=== PATIENT | female | born 1945 | race Caucasian/White ===

== ENCOUNTER 2019-07-19 07:45 | Day surgery (SDC) | payer MEDICARE, MEDICAID, SELFPAY ==
[2019-07-18 13:53] VITALS: BMI 43.3
--- NOTE | 2019-07-19 08:16 | ANES.PREANE2 ---
Pre-Anesthetic Assessment Pre-Anesthetic Assessment: Height/Weight: Height 1.78 m Weight 136.985 kg Preop Diagnosis: hematochezia Proposed Procedure: Operation Date: 07/19/19 09:00 Proposed Procedures p EGD/COLON(Not Applicable) - Kyle Chen MD s Colonoscopy(Not Applicable) - Kyle Chen MD Was Beta Romelia taken within 24 hours: Yes Last Intake: 05:00 Exam: Pre-Anes Outpt Exam: alert, oriented x 3, clear to auscultation bilaterally and regular rate & rhythm Airway: Submandibular: WNL Cervical ROM: WNL MP: 2 Dentition: False Pulmonary: Comments: pneumonia 30y without sequale CV/HEM: CV/HEM: HTN and MN Comments: rx'd x 12 MN cath no blockages : : Chronic renal Insufficiency GI: GI: GERD Comments: Ramires's esophagus Metabolic: Metabolic: DM, Morbid obesity and Thyroid Comments: rx'd x 12y, normally 200-260 thyroid x 30y without recent changes Musc/skel: Musc/skel: Lower Back Pain Neuropsych: Neuropsych: MACKEY Comments: last weeks ago Anesthetic Plan: ASA status: 3 Anesthesia: MAC PFSH Anesthesia PFSH: Medical History (Updated 07/11/19 @ 11:03 by Kyle Chen MD) 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
[2019-07-19 08:50] VITALS: BP 109/74; PULSE 85; RESP 18; TEMP 36.2; O2SAT 99
[2019-07-19 08:59] LABS: Glucose Point of Care 297 mg/dL (70-110)
[2019-07-19] MEDS: sodium chloride 0.9% 1,000 ML 30 ML (08:59)
--- NOTE | 2019-07-19 10:06 | PM.HPUD ---
H&P update H&P Update: DATE OF SURGERY/PROCEDURE: 07/19/19 DATE H&P PERFORMED: 07/11/19 H&P UPDATE INFORMATION: H&P completed within last 30 days, No changes to prior documentation and H&P is in 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
[2019-07-19 10:33] VITALS: BP 116/75; PULSE 77; RESP 18; TEMP 36.1; O2SAT 96
[2019-07-19 10:48] VITALS: BP 115/65; PULSE 72; RESP 18; O2SAT 98
== END 2019-07-19 11:35 | disposition home or self-care (01) ==
PROVIDERS: Family Provider Family Medicine; PCP Family Medicine; Visit Provider Internal Medicine
PROC: 0DJ08ZZ Inspection of Upper Intestinal Tract, Via Natural or Artificial Opening Endoscopic (ICD-10-PCS; CPT 43235; principal; 2019-07-19 09:00)
PROC: 0DJD8ZZ Inspection of Lower Intestinal Tract, Via Natural or Artificial Opening Endoscopic (ICD-10-PCS; CPT 45378; 2019-07-19 09:00)
DX: K92.1 Melena (principal); K57.30 Diverticulosis of large intestine without perforation or abscess without bleeding; E13.9 Other specified diabetes mellitus without complications; I10 Essential (primary) hypertension; E03.9 Hypothyroidism, unspecified; E78.2 Mixed hyperlipidemia; E66.01 Morbid (severe) obesity due to excess calories; Z68.41 Body mass index [BMI] 40.0-44.9, adult; Z87.891 Personal history of nicotine dependence; I25.2 Old myocardial infarction
CPT/HCPCS: 12345; 36416; 43235; 45378; 82962; J2001; J2704; J7030

== ENCOUNTER → 2019-07-31 10:57 | Outpatient (BNVA) | payer MEDICARE, MEDICAID, SELFPAY | PROVIDERS: Family Provider Family Medicine; PCP Family Medicine; Visit Provider Family Medicine | DX: L60.0 Ingrowing nail (principal); F41.9 Anxiety disorder, unspecified | CPT/HCPCS: 85025 ==

== ENCOUNTER → 2019-08-28 14:00 | Outpatient (BNVA) | payer MEDICARE, MEDICAID, SELFPAY | PROVIDERS: Family Provider Family Medicine; PCP Family Medicine; Visit Provider Family Medicine | DX: I10 Essential (primary) hypertension (principal); K92.1 Melena; F41.9 Anxiety disorder, unspecified; R32 Unspecified urinary incontinence; N81.9 Female genital prolapse, unspecified | CPT/HCPCS: 80053; 85025 ==

== ENCOUNTER → 2019-09-16 14:16 | Outpatient (BNVA) | payer MEDICARE, MEDICAID, SELFPAY | PROVIDERS: Family Provider Family Medicine; PCP Family Medicine; Visit Provider Family Medicine | DX: I10 Essential (primary) hypertension (principal); K92.1 Melena; F41.9 Anxiety disorder, unspecified; R32 Unspecified urinary incontinence; N81.9 Female genital prolapse, unspecified | CPT/HCPCS: 82607; 82746 ==

== ENCOUNTER → 2019-09-25 14:00 | Outpatient (BNVA) | payer MEDICARE, MEDICAID, SELFPAY | PROVIDERS: Family Provider Family Medicine; PCP Family Medicine; Visit Provider Nurse Practitioner Family | DX: E03.9 Hypothyroidism, unspecified (principal); R53.82 Chronic fatigue, unspecified | CPT/HCPCS: 84439; 84443 ==

== ENCOUNTER → 2019-12-09 11:41 | Outpatient (BNVA) | payer MEDICARE, MEDICAID, SELFPAY | PROVIDERS: Family Provider Family Medicine; PCP Family Medicine; Visit Provider Family Medicine | DX: E11.9 Type 2 diabetes mellitus without complications (principal); K22.70 Barrett's esophagus without dysplasia; F41.9 Anxiety disorder, unspecified; R53.82 Chronic fatigue, unspecified | CPT/HCPCS: 36415; 83036; 85025 ==

== ENCOUNTER → 2020-02-28 14:34 | Outpatient (BNVA) | payer MEDICARE, MEDICAID, SELFPAY | PROVIDERS: Family Provider Family Medicine; PCP Family Medicine; Visit Provider Nurse Practitioner Family | DX: Z20.828 Contact with and (suspected) exposure to other viral communicable diseases (principal) | CPT/HCPCS: 87635 ==

== ENCOUNTER → 2020-03-18 10:50 | Outpatient (BNVA) | payer MEDICARE, MEDICAID, SELFPAY | PROVIDERS: Family Provider Family Medicine; PCP Family Medicine; Visit Provider Family Medicine | DX: R10.9 Unspecified abdominal pain (principal); R32 Unspecified urinary incontinence | CPT/HCPCS: 81000 ==

== ENCOUNTER 2020-03-24 14:34 | Emergency (ER) | payer MEDICARE, MEDICAID, SELFPAY ==
[2020-03-24 14:41] VITALS: BP 167/121; PULSE 66; RESP 18; TEMP 36.1; O2SAT 95; BMI 43.2
--- NOTE | 2020-03-24 15:10 | PC.NURSE ---
PATIENT ASSISTED TO BATHROOM VIA WHEELCHAIR; URINE OBTAINED.
--- NOTE | 2020-03-24 15:17 | CTR_ITS ---
PROCEDURE INFORMATION: Exam: CT Abdomen And Pelvis Without Contrast Exam date and time: 03/24/2020 4:03 PM Age: 74 years old Clinical indication: Abdominal pain; Flank; Other: Bilat; Prior surgery; Surgery type: Hyst; Patient HX: Recent UTI; Additional info: Kidney pain - h/o renal abscess TECHNIQUE: Imaging protocol: Computed tomography of the abdomen and pelvis without contrast. Radiation optimization: All CT scans at this facility use at least one of these dose optimization techniques: automated exposure control; mA and/or kV adjustment per patient size (includes targeted exams where dose is matched to clinical indication); or iterative reconstruction. COMPARISON: CT abdomen pelvis w con* 36000 03/14/2019 3:30 PM RADIATION DOSE METRICS: Total DLP (mGy-cm): 2305.43 FINDINGS: Lungs: Limited assessment of the lung bases fails to reveal evidence for active cardiopulmonary process. Tiny calcified granuloma posterior basal segment left lower lobe stable. Cardiomegaly. Calcified mitral annulus. Liver: Few hepatic calcified granulomas of antecedent disease. No visible hepatic mass or cystic structure. Hepatomegaly. Gallbladder and bile ducts: Unremarkable. No calcified stones. No ductal dilation. Pancreas: Normal. No ductal dilation. Spleen: Calcified splenic granulomas of antecedent disease. Tiny splenule. Spleen otherwise unremarkable. Adrenals: Normal. No mass. Kidneys and ureters: No visible hydronephrosis, hydroureter, ureterolithiasis, or nephrolithiasis. Bilateral simple renal cortical cysts to include hemorrhagic cyst stable since 03/14/2019. Largest superior pole right kidney measuring 68 mm in maximum diameter. No follow-up recommended. Stomach and bowel: Diverticulosis coli, predominantly of the sigmoid colon, without visible evidence of for acute diverticulitis. Assessment of the hollow viscus fails to reveal evidence of active or acute pathology. Nonobstructed bowel pattern. No visible acute diverticulitis. No visible adynamic or reactive ileus. Heavy fecal residue consistent with constipation. Appendix: The appendix is visualized and appears noninflamed. Intraperitoneal space: No visible evidence of mesenteric lymphadenitis or active mesenteritis/panniculitis. Vasculature: The abdominal aorta is nonaneurysmal. Mild arterial sclerotic disease. Lymph nodes: No current visible evidence of active mesenteric or retroperitoneal lymphadenopathy. Urinary bladder: Unremarkable as visualized. Reproductive: Status post hysterectomy. Bones/joints: Degenerative disease and degenerative disc disease of the spine most advanced L3 through S1 with vacuum disc phenomenon and disc space height loss. Facet arthrosis. Osteopenia. Soft tissues: Small periumbilical hernia containing fat only. Other findings: Marked obesity. Increased quantum mottle artifact which degrades image quality in detail. CT/CT kidney stone [id number] IMPRESSION: 1. No visible evidence of active or acute abdominal or pelvic pathologic process. 2. Diverticulosis coli without evidence for acute diverticulitis. 3. Constipation. 4. No visible hydronephrosis, hydroureter, ureterolithiasis, or nephrolithiasis. 5. Bilateral simple renal cortical cysts to include a dominant superior pole right renal cyst measuring 68 mm in maximum diameter. No follow-up recommended. 6. Antecedent granulomatous disease. COMMENTS: Consistent with the [employer]'s Incidental Findings Committee white paper (J Am Morena Radiol 2018): Any incidental renal lesion less than 1 cm or classified as too small to characterize, or any incidental cystic renal lesion characterized as simple-appearing, is likely benign. No follow-up imaging is recommended for these lesions per consensus recommendations based on imaging criteria. Radiation Dose CTDIVOL = (mGy): DLP = 2305.43 (mGy-cm)
[2020-03-24 15:20] LABS: Add Urine Microscopic? NO; Bilirubin Urine Neg (Negative); Blood Urine Neg (Negative); Glucose Urine UA Norm (Normal); Ketones Urine Negative (Negative); Leukocyte Esterase Urine Negative (Negative); Nitrate Urine Negative (Negative); Protein Urine Neg (Negative); Urine Appearance Clear (CLEAR); Urine Color Yellow (Yellow); Urobilinogen Urine Norm (Negative); pH Urine 5 (5-7)
--- NOTE | 2020-03-24 16:02 | W.ED.FEMALGU ---
Documented by User: Vicki Mayelin KAY Alba 03/25/20 07:53 HPI - Female Genitourinary General: Chief complaint: Urogenital-Female Stated complaint: BILAT FLANK PAIN Time Seen by Provider: 03/24/20 14:48 History of Present Illness: HPI Narrative: 74-year-old female patient planing of lower back pain, she is reporting kidney pain . She was sent by EMS to the emergency department from her primary care provider who reports her back pain was out of proportion. She reports she is experiencing kidney pain. Onset of back pain started 10 days ago, placed on Levaquin for urinary tract infection. She states last dose of Levaquin today and pain is not improved. She reports the last time she experienced similar symptoms was with E. coli positive blood cultures and abscess in her kidney. She reports purulent exudate in her urine today. She denies fever, reports chills, denies nausea vomiting. She denies urinary symptoms yet reports stage IV kidney disease. She reports Dr. Valentine, her primary care physician is concerned she may have a kidney stone or another renal abscess. He has sent her here for a CT scan. MD elicited complaint: other (Bilateral flank pain and back pain) Pertinent past history: pyelonephritis, diabetes and other (Renal abscess) Onset (ago): day(s) (10) Location of symptoms: low back Severity: moderate Female Urogenital Radiation: L Flank and R Flank Severity scale (1-10): 5 Quality of pain: cramping, dull and aching Consistency: constant Vaginal discharge: none Vaginal bleeding: none Associated symptoms: Reports abdominal pain and fevers/chills; Deny headache(s) or nausea Review of Systems General: Reports: 10 or more systems reviewed and unremarkable except in HPI and below Const: Denies: fever(s), chills or diaphoresis Eyes: Denies: blurry vision or eye redness ENMT: Denies: throat pain, dental pain or disequilibrium Card: Denies: chest pain, palpitations or irregular heart rhythm Resp: Denies: dyspnea, productive cough, non-productive cough or wheezing GI: Reports: abdominal pain and other (Bilateral flank pain); Denies: nausea or vomiting : Denies: difficulty voiding or dysuria Musc: Reports: back pain; Denies: neck pain, extremity pain, extremity swelling, muscle cramps or muscle weakness Skin/Breast: Denies: rash or pruritus Neuro: Denies: headache(s), weakness in extremities or behavioral changes Psych: Denies: anxiety or depression Willie/Lymph: Denies: easy bruising PFSH ED PFSH: Medical History 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 Chronic pain Diabetes 1.5, 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 Hypertension Hypothyroidism (acquired) Mixed hyperlipidemia Obesity (BMI 35.0-39.9 without comorbidity) Social History Smoking and tobacco status: never smoked Alcohol intake: former Household members: none Marital status: Number of children: 3 Number of grandchildren: 3 History of recent travel: No Physical Exam Const: COMMON NORMALS: no acute distress, patient oriented x3, healthy appearing and alert GENERAL APPEARANCE: cooperative, comfortable and well hydrated HENMT: COMMON NORMALS: normocephalic, Normal external nose present and moist oral mucous membranes HEAD & SCALP: normocephalic NOSE: Normal external nose present Eye: COMMON NORMALS: Equal, round and reactive pupils present and EOMs intact bilaterally GENERAL EYE: appearance normal, both eyes and all related structures PUPIL: Yes Equal, round and reactive pupils present Neck/C-Spine: COMMON NORMALS: full ROM and no lymphadenopathy GENERAL: Yes normal visual inspection and Yes trachea midline CERVICAL SPINE: Yes cervical ROM normal Lymph: LYMPHATIC: no lymphadenopathy noted Chest: COMMONS NORMALS: normal inspection of the chest and normal palpation of entire chest wall Resp: COMMON NORMALS: normal respiratory effort and clear to auscultation bilaterally EFFORT & INSPECTION: Yes able to speak in complete sentences AUSCULTATION: clear to auscultation bilaterally Cardio: COMMON NORMALS: regular rhythm, S1 normal heart sound present, S2 normal heart sound present and Peripheral pulses 2+ throughout RHYTHM: regular rhythm HEART SOUNDS: S1 normal heart sound present and S2 normal heart sound present PERIPHERAL PULSES: Peripheral pulses 2+ throughout GI: COMMON NORMALS: Normal to inspection, nondistended, normoactive bowel sounds present, Soft to palpation and non-tender INSPECTION: Yes normal to inspection PALPATION: Yes Soft to palpation : BLADDER/KIDNEY EXAM: No CVA tenderness Back/Pelvis: COMMON NORMALS: thoracic and lumbar spine normal to inspection GENERAL BACK: No CVA tenderness THORACIC SPINE/UPPER BACK: Yes thoracic ROM normal LUMBAR SPINE/LOWER BACK: Yes normal to inspection, Yes pain with ROM, No lumbar spinal tenderness, Yes paraspinal muscle tenderness, No paraspinal muscle spasm, No Lumbar scoliosis, Yes straight leg raise negative bilaterally and Yes other soft tissue findings (Bilateral lower extremity strength 5/5) Extremity: COMMON NORMALS: normal to inspection and capillary refill normal Neuro: COMMON NORMALS: patient oriented x3 and no focal motor deficits SENSORIUM/ORIENTATION: Yes alert Psych: COMMON NORMALS: mental status grossly normal, Normal thought process present and cooperative ACTIVITY/MOTOR BEHAVIOR: Yes appropriate eye contact THOUGHT PROCESS: Normal thought process present Skin: COMMON NORMALS: no rashes or lesions noted and turgor normal GENERAL SKIN EXAM: no rashes or lesions noted and turgor normal Course ED course: 74-year-old female patient presents to the emergency department with back pain and flank pain. She was sent from her primary care physician's office for evaluation, CT scan of the abdomen and pelvis, CT kidney stone protocol currently pending. Urinalysis normal, completed Levaquin today. White blood count normal. Transfer of care to [facility] Vital Signs: Vital signs: Vital Signs Temperature 97.0 F L 03/24/20 14:41 Pulse Rate 75 03/24/20 18:33 Respiratory Rate 17 03/24/20 18:33 Blood Pressure 155/85 03/24/20 18:33 Pulse Oximetry 98 03/24/20 18:33 MDM - Female Lab Data: Labs: Lab Results 03/24/20 03/24/20 03/24/20 Range/Units 14:55 16:00 16:00 WBC 6.7 (4.0-10.0) 10^3/ uL RBC 3.57 L (4.1-5.3) 10^6/u L Hgb 11.6 (11.5-15.3) g/dL Hct 36.3 L (37.0-47.0) % MCV 101.7 H (81-99) fL MCH 32.5 (28.0-34.0) pg MCHC 32.0 (30.0-36.0) g/dL RDW 14.9 (12.1-15.1) % Plt Count 145 (130-400) 10^3/c mm MPV 12.0 H (7.4-10.4) fL Neut % (Auto) 52.6 % Lymph % (Auto) 36.1 % Bent % (Auto) 6.7 % Eos % (Auto) 2.2 % Baso % (Auto) 2.1 % Neut # (Auto) 3.55 (1.8-7.7) 10^3/u L Lymph # (Auto) 2.4 (0.8-4.8) 10^3/u L Bent # (Auto) 0.5 (0.2-0.9) 10^3/u L Eos # (Auto) 0.2 (0.0-0.8) 10^3/u L Baso # (Auto) 0.1 (0.0-0.1) 10^3/u L Nucleated RBC % (a uto) 0 % Nucleated RBCs # 0.0 /100WBC Sodium 144 (136-145) mmol/L Potassium 4.1 (3.5-5.1) mmol/L Chloride 109 H (98-107) mmol/L Carbon Dioxide 23 (22-29) mmol/L Anion Gap 16.1 (5-19) BUN 22 (8-23) mg/dL Creatinine 1.1 H (0.5-0.9) mg/dL GFR Calculation Not Reportable Glucose 68 (65-115) mg/dL Calculated Osmolal ity 300 H (285-295) mOsm/k g Calcium 10.1 (8.5-10.5) mg/dL Total Bilirubin 0.4 (0.15-1.2) mg/dL AST 24 (0-32) U/L ALT 17 (0-33) U/L Alkaline Phosphata se 70 (35-105) IU/L Total Protein 7.5 (6.6-8.7) g/dL Albumin 4.3 (3.5-5.2) g/dL Globulin 3.2 (1.3-4.6) g/dL Urine Color Yellow (Yellow) Urine Appearance Clear (CLEAR) Urine pH 5 (5-7) Ur Specific Gravit y 1.020 (1.005-1.030) Urine Protein Neg (Negative) Urine Glucose (UA) Norm (Normal) Urine Ketones Negative (Negative) Urine Blood Neg (Negative) Urine Nitrate Negative (Negative) Urine Bilirubin Neg (Negative) Urine Urobilinogen Norm (Negative) mg/dL Ur Leukocyte Latonia ase Negative (Negative) Discharge Plan Discharge Patient Disposition: Home Clinical Impression: Low back pain Qualifiers: Chronicity: acute Back pain laterality: bilateral Sciatica presence: without sciatica Qualified Code(s): M54.5 - Low back pain Condition: Stable Prescriptions: No Action diclofenac sodium [Voltaren] 1 % gel 4 gm TOPICAL QID RF: 0 ascorbate calcium (vitamin C) 500 mg tablet 500 mg PO DAILY RF: 0 omega-3 fatty acids [Fish Oil Concentrate] 1,000 mg capsule 1,000 mg PO DAILY RF: 0 glucosamine-chondroitin 167-133 mg capsule 1 cap PO DAILY RF: 0 carvedilol 25 mg tablet 25 mg PO BID RF: 0 simvastatin 10 mg tablet 10 mg PO DAILY RF: 0 levothyroxine [Synthroid] 150 mcg tablet 150 mcg PO DAILY RF: 0 sumatriptan succinate [Imitrex] 100 mg tablet See Rx Instructions PO .COMPLEX RF: 0 (DME) insulin needles (disposable) 30 X 3/4 needle See Rx Instructions .ROUTE .MEDSUPPLY Qty: 1 RF: 0 nitroglycerin 0.4 mg tablet, sublingual 0.4 mg SUBLINGUAL Q5M PRN (Reason: Chest Pain) RF: 0 PNV,[id number] 27-1-50-500 mg capsule 1 cap PO DAILY RF: 0 fluticasone propionate 50 mcg/actuation spray,suspension 1 spray INTRANASAL BID RF: 0 aspirin [Adult Aspirin Regimen] 81 mg tablet,delayed release (DR/EC) 81 mg PO DAILY RF: 0 vitamin B complex PO RF: 0 acyclovir 5 % ointment 1 applic TOPICAL TID PRN (Reason: Cold Sores) Qty: 30 RF: 5 ergocalciferol (vitamin D2) 1,250 mcg (50,000 unit) capsule 1,250 mcg PO .COMPLEX Qty: 14 RF: 3 prednisone 5 mg tablets,dose pack See Rx Instructions PO PER PKG DIR Qty: 21 RF: 0 levofloxacin 500 mg tablet 500 mg PO Q24H 10 Days Qty: 7 RF: 0 spironolactone 25 mg tablet 25 mg PO DAILY RF: 0 cannabidiol 100 mg/mL solution PO DAILY RF: 0 olopatadine [Pataday] 0.2 % drops 1 drop ophthalmic (eye) DAILY PRN (Reason: itching) Qty: 2.5 RF: 11 doxycycline monohydrate 50 mg tablet 50 mg PO DAILY Qty: 30 RF: 5 Victoza 2-Thee 0.6 mg/0.1 mL (18 mg/3 mL) pen injector 1.8 mg SUBCUT QDAY Qty: 6 RF: 5 glipizide 10 mg tablet 20 mg PO BID Qty: 60 RF: 11 lisinopril 40 mg tablet 40 mg PO BEDTIME Qty: 30 RF: 11 ibuprofen 800 mg tablet 800 mg PO TID PRN (Reason: Pain) Qty: 90 RF: 11 metronidazole 0.75 % cream 1 applic TOPICAL BID Qty: 135 RF: 11 amlodipine 5 mg tablet 5 mg PO DAILY Qty: 30 RF: 11 lidocaine HCl 2 % jelly 1 applic TOPICAL QID PRN (Reason: Pain) Qty: 30 RF: 5 potassium chloride 15 mEq tablet,ER particles/crystals 15 meq PO DAILY PRN (Reason: TAKE WITH LASIX) Qty: 30 RF: 11 pioglitazone [Actos] 30 mg tablet 30 mg PO DAILY Qty: 30 RF: 11 furosemide [Lasix] 40 mg tablet 40 mg PO DAILY Qty: 30 RF: 11 lidocaine [Lidoderm] 5 % adhesive patch,medicated 3 patch TOPICAL .q12 hours Qty: 30 RF: 11 clonazepam 0.5 mg tablet 0.5 mg PO .COMPLEX PRN (Reason: anxiety) Qty: 60 RF: 0 polyethylene glycol 3350 [Miralax] 17 gram/dose powder 17 gm PO DAILY Qty: 119 RF: 1 benzonatate 200 mg capsule 200 mg PO TID PRN (Reason: cough) Qty: 14 RF: 0 Dexilant 60 mg capsule,biphase delayed releas 60 mg PO DAILY Qty: 30 RF: 5 Discharge Orders: Discharge Order (Routine); Ordered 03/24/20 Ordered By: Vincent Jesus Referrals: Tenzin Valentine DO [Primary Care Provider] - Discharge Diet: Regular Discharge Activity: Increase activity as tolerated Patient Instructions: Low Back Strain (ED), Acute Low Back Pain (ED), Back Pain (ED) Activity Restrictions/Additional Instructions: Follow-up with medical provider as directed in 7-10 days. Continue taking all home medications as prescribed. Apply heat or cold pack on sore back to help with symptoms. Take Tylenol or ibuprofen for pain. Stretch lower back daily. Return to the ER or your medical provider if condition worsens. Please read and understand discharge instructions. If any questions, please ask. Discharge Date/Time: 03/24/20 18:36 Sign Out Sign Out Data: Patient Sign Out occurred on 03/24/20 at 17:19. Patient's care was discussed, and care was transferred from to [facility]. 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 Chronic pain Diabetes 1.5, 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 Hypertension Hypothyroidism (acquired) Mixed hyperlipidemia Obesity (BMI 35.0-39.9 without comorbidity) Social History Smoking and tobacco status: never smoked Alcohol intake: former Household members: none Marital status: Number of children: 3 Number of grandchildren: 3 History of recent travel: No Course Vital Signs: Vital signs: Vital Signs Temperature 97.0 F L 03/24/20 14:41 Pulse Rate 75 03/24/20 18:33 Respiratory Rate 17 03/24/20 18:33 Blood Pressure 155/85 03/24/20 18:33 Pulse Oximetry 98 03/24/20 18:33 MDM - Female MDM Narrative: Medical decision making narrative: 74-year-old female patient presents to the emergency department with back pain and flank pain. She was sent from her primary care physician's office for evaluation, CT scan of the abdomen and pelvis, CT kidney stone protocol currently pending. Urinalysis normal, completed Levaquin today. White blood count normal. Transfer of care to [facility] She has a past medical history of chronic kidney disease stage IV. Patient had creatinine of 1.1, which she said is the lowest level she has had in a long time. Rest of CBC and CMP was unremarkable. UA was unremarkable as well with no evidence of UTI. CT the abdomen showed no acute abdominal findings. Patient was diagnosed with lower back pain discharged. She was told to stretch lower back daily, apply heat to help with symptoms. Take Tylenol or ibuprofen for pain. Follow-up with PCP in 7 to 10 days. Return to ED precautions given. Patient understood and agreed with plan. Lab Data: Labs: Lab Results 03/24/20 03/24/20 03/24/20 Range/Units 14:55 16:00 16:00 WBC 6.7 (4.0-10.0) 10^3/ uL RBC 3.57 L (4.1-5.3) 10^6/u L Hgb 11.6 (11.5-15.3) g/dL Hct 36.3 L (37.0-47.0) % MCV 101.7 H (81-99) fL MCH 32.5 (28.0-34.0) pg MCHC 32.0 (30.0-36.0) g/dL RDW 14.9 (12.1-15.1) % Plt Count 145 (130-400) 10^3/c mm MPV 12.0 H (7.4-10.4) fL Neut % (Auto) 52.6 % Lymph % (Auto) 36.1 % Bent % (Auto) 6.7 % Eos % (Auto) 2.2 % Baso % (Auto) 2.1 % Neut # (Auto) 3.55 (1.8-7.7) 10^3/u L Lymph # (Auto) 2.4 (0.8-4.8) 10^3/u L Bent # (Auto) 0.5 (0.2-0.9) 10^3/u L Eos # (Auto) 0.2 (0.0-0.8) 10^3/u L Baso # (Auto) 0.1 (0.0-0.1) 10^3/u L Nucleated RBC % (a uto) 0 % Nucleated RBCs # 0.0 /100WBC Sodium 144 (136-145) mmol/L Potassium 4.1 (3.5-5.1) mmol/L Chloride 109 H (98-107) mmol/L Carbon Dioxide 23 (22-29) mmol/L Anion Gap 16.1 (5-19) BUN 22 (8-23) mg/dL Creatinine 1.1 H (0.5-0.9) mg/dL GFR Calculation Not Reportable Glucose 68 (65-115) mg/dL Calculated Osmolal ity 300 H (285-295) mOsm/k g Calcium 10.1 (8.5-10.5) mg/dL Total Bilirubin 0.4 (0.15-1.2) mg/dL AST 24 (0-32) U/L ALT 17 (0-33) U/L Alkaline Phosphata se 70 (35-105) IU/L Total Protein 7.5 (6.6-8.7) g/dL Albumin 4.3 (3.5-5.2) g/dL Globulin 3.2 (1.3-4.6) g/dL Urine Color Yellow (Yellow) Urine Appearance Clear (CLEAR) Urine pH 5 (5-7) Ur Specific Gravit y 1.020 (1.005-1.030) Urine Protein Neg (Negative) Urine Glucose (UA) Norm (Normal) Urine Ketones Negative (Negative) Urine Blood Neg (Negative) Urine Nitrate Negative (Negative) Urine Bilirubin Neg (Negative) Urine Urobilinogen Norm (Negative) mg/dL Ur Leukocyte Latonia ase Negative (Negative) Imaging Data: CT Abd/Pel: Attestation: I personally reviewed and interpreted this imaging study as follows: Radiologist's impression: [address] [address] [address] Scan Report Signed Patient: Sara Beck Unit #: [id number] : 1945 Age/Sex: 74 / F ADM Date: 03/24/20 Loc: ER Room/Bed: Attending Dr: Ordering Provider/Ordering MD: Vicki Alba Date of Service: 03/24/20 Procedure(s): CT kidney stone 9[address]14 Accession Number(s): [id number] Report Number: [id number] PROCEDURE INFORMATION: Exam: CT Abdomen And Pelvis Without Contrast Exam date and time: 03/24/2020 4:03 PM Age: 74 years old Clinical indication: Abdominal pain; Flank; Other: Bilat; Prior surgery; Surgery type: Hyst; Patient HX: Recent UTI; Additional info: Kidney pain - h/o renal abscess TECHNIQUE: Imaging protocol: Computed tomography of the abdomen and pelvis without contrast. Radiation optimization: All CT scans at this facility use at least one of these dose optimization techniques: automated exposure control; mA and/or kV adjustment per patient size (includes targeted exams where dose is matched to clinical indication); or iterative reconstruction. COMPARISON: CT abdomen pelvis w con* [id number] 03/14/2019 3:30 PM RADIATION DOSE METRICS: Total DLP (mGy-cm): 2305.43 FINDINGS: Lungs: Limited assessment of the lung bases fails to reveal evidence for active cardiopulmonary process. Tiny calcified granuloma posterior basal segment left lower lobe stable. Cardiomegaly. Calcified mitral annulus. Liver: Few hepatic calcified granulomas of antecedent disease. No visible hepatic mass or cystic structure. Hepatomegaly. Gallbladder and bile ducts: Unremarkable. No calcified stones. No ductal dilation. Pancreas: Normal. No ductal dilation. Spleen: Calcified splenic granulomas of antecedent disease. Tiny splenule. Spleen otherwise unremarkable. Adrenals: Normal. No mass. Kidneys and ureters: No visible hydronephrosis, hydroureter, ureterolithiasis, or nephrolithiasis. Bilateral simple renal cortical cysts to include hemorrhagic cyst stable since 03/14/2019. Largest superior pole right kidney measuring 68 mm in maximum diameter. No follow-up recommended. Stomach and bowel: Diverticulosis coli, predominantly of the sigmoid colon, without visible evidence of for acute diverticulitis. Assessment of the hollow viscus fails to reveal evidence of active or acute pathology. Nonobstructed bowel pattern. No visible acute diverticulitis. No visible adynamic or reactive ileus. Heavy fecal residue consistent with constipation. Appendix: The appendix is visualized and appears noninflamed. Intraperitoneal space: No visible evidence of mesenteric lymphadenitis or active mesenteritis/panniculitis. Vasculature: The abdominal aorta is nonaneurysmal. Mild arterial sclerotic disease. Lymph nodes: No current visible evidence of active mesenteric or retroperitoneal lymphadenopathy. Urinary bladder: Unremarkable as visualized. Reproductive: Status post hysterectomy. Bones/joints: Degenerative disease and degenerative disc disease of the spine most advanced L3 through S1 with vacuum disc phenomenon and disc space height loss. Facet arthrosis. Osteopenia. Soft tissues: Small periumbilical hernia containing fat only. Other findings: Marked obesity. Increased quantum mottle artifact which degrades image quality in detail. CT/CT kidney stone 20256 IMPRESSION: 1. No visible evidence of active or acute abdominal or pelvic pathologic process. 2. Diverticulosis coli without evidence for acute diverticulitis. 3. Constipation. 4. No visible hydronephrosis, hydroureter, ureterolithiasis, or nephrolithiasis. 5. Bilateral simple renal cortical cysts to include a dominant superior pole right renal cyst measuring 68 mm in maximum diameter. No follow-up recommended. 6. Antecedent granulomatous disease. COMMENTS: Consistent with the [employer]'s Incidental Findings Committee white paper (J Am Morena Radiol 2018): Any incidental renal lesion less than 1 cm or classified as too small to characterize, or any incidental cystic renal lesion characterized as simple-appearing, is likely benign. No follow-up imaging is recommended for these lesions per consensus recommendations based on imaging criteria. Radiation Dose CTDIVOL = (mGy): DLP = 2305.43 (mGy-cm) Dictated By: Christiano Alcala Signed By: Christiano Alcala Signed Date/Time: 03/24/201734 DD/ 32 Discharge Plan Discharge Patient Disposition: Home Clinical Impression: Low back pain Qualifiers: Chronicity: acute Back pain laterality: bilateral Sciatica presence: without sciatica Qualified Code(s): M54.5 - Low back pain Condition: Stable Prescriptions: No Action diclofenac sodium [Voltaren] 1 % gel 4 gm TOPICAL QID RF: 0 ascorbate calcium (vitamin C) 500 mg tablet 500 mg PO DAILY RF: 0 omega-3 fatty acids [Fish Oil Concentrate] 1,000 mg capsule 1,000 mg PO DAILY RF: 0 glucosamine-chondroitin 167-133 mg capsule 1 cap PO DAILY RF: 0 carvedilol 25 mg tablet 25 mg PO BID RF: 0 simvastatin 10 mg tablet 10 mg PO DAILY RF: 0 levothyroxine [Synthroid] 150 mcg tablet 150 mcg PO DAILY RF: 0 sumatriptan succinate [Imitrex] 100 mg tablet See Rx Instructions PO .COMPLEX RF: 0 (DME) insulin needles (disposable) 30 X 3/4 needle See Rx Instructions .ROUTE .MEDSUPPLY Qty: 1 RF: 0 nitroglycerin 0.4 mg tablet, sublingual 0.4 mg SUBLINGUAL Q5M PRN (Reason: Chest Pain) RF: 0 PNV,[id number] 27-1-50-500 mg capsule 1 cap PO DAILY RF: 0 fluticasone propionate 50 mcg/actuation spray,suspension 1 spray INTRANASAL BID RF: 0 aspirin [Adult Aspirin Regimen] 81 mg tablet,delayed release (DR/EC) 81 mg PO DAILY RF: 0 vitamin B complex PO RF: 0 acyclovir 5 % ointment 1 applic TOPICAL TID PRN (Reason: Cold Sores) Qty: 30 RF: 5 ergocalciferol (vitamin D2) 1,250 mcg (50,000 unit) capsule 1,250 mcg PO .COMPLEX Qty: 14 RF: 3 prednisone 5 mg tablets,dose pack See Rx Instructions PO PER PKG DIR Qty: 21 RF: 0 levofloxacin 500 mg tablet 500 mg PO Q24H 10 Days Qty: 7 RF: 0 spironolactone 25 mg tablet 25 mg PO DAILY RF: 0 cannabidiol 100 mg/mL solution PO DAILY RF: 0 olopatadine [Pataday] 0.2 % drops 1 drop ophthalmic (eye) DAILY PRN (Reason: itching) Qty: 2.5 RF: 11 doxycycline monohydrate 50 mg tablet 50 mg PO DAILY Qty: 30 RF: 5 Victoza 2-Thee 0.6 mg/0.1 mL (18 mg/3 mL) pen injector 1.8 mg SUBCUT QDAY Qty: 6 RF: 5 glipizide 10 mg tablet 20 mg PO BID Qty: 60 RF: 11 lisinopril 40 mg tablet 40 mg PO BEDTIME Qty: 30 RF: 11 ibuprofen 800 mg tablet 800 mg PO TID PRN (Reason: Pain) Qty: 90 RF: 11 metronidazole 0.75 % cream 1 applic TOPICAL BID Qty: 135 RF: 11 amlodipine 5 mg tablet 5 mg PO DAILY Qty: 30 RF: 11 lidocaine HCl 2 % jelly 1 applic TOPICAL QID PRN (Reason: Pain) Qty: 30 RF: 5 potassium chloride 15 mEq tablet,ER particles/crystals 15 meq PO DAILY PRN (Reason: TAKE WITH LASIX) Qty: 30 RF: 11 pioglitazone [Actos] 30 mg tablet 30 mg PO DAILY Qty: 30 RF: 11 furosemide [Lasix] 40 mg tablet 40 mg PO DAILY Qty: 30 RF: 11 lidocaine [Lidoderm] 5 % adhesive patch,medicated 3 patch TOPICAL .q12 hours Qty: 30 RF: 11 clonazepam 0.5 mg tablet 0.5 mg PO .COMPLEX PRN (Reason: anxiety) Qty: 60 RF: 0 polyethylene glycol 3350 [Miralax] 17 gram/dose powder 17 gm PO DAILY Qty: 119 RF: 1 benzonatate 200 mg capsule 200 mg PO TID PRN (Reason: cough) Qty: 14 RF: 0 Dexilant 60 mg capsule,biphase delayed releas 60 mg PO DAILY Qty: 30 RF: 5 Discharge Orders: Discharge Order (Routine); Ordered 03/24/20 Ordered By: Vincent Jesus Referrals: Tenzin Valentine DO [Primary Care Provider] - Discharge Diet: Regular Discharge Activity: Increase activity as tolerated Patient Instructions: Low Back Strain (ED), Acute Low Back Pain (ED), Back Pain (ED) Activity Restrictions/Additional Instructions: Follow-up with medical provider as directed in 7-10 days. Continue taking all home medications as prescribed. Apply heat or cold pack on sore back to help with symptoms. Take Tylenol or ibuprofen for pain. Stretch lower back daily. Return to the ER or your medical provider if condition worsens. Please read and understand discharge instructions. If any questions, please ask. Discharge Date/Time: 03/24/20 18:36 Sign Out Sign Out Data: Patient Sign Out occurred on 03/24/20 at 17:19. Patient's care was discussed, and care was transferred from to [facility]. Coding Level of Care Code ED Apprentice Embalmer for Zuri Fwd Exam Comprehensive
--- NOTE | 2020-03-24 16:09 | PC.NURSE ---
PATIENT GIVEN PO FLUIDS PER PROVIDER OKAY. PATIENT ALSO GIVEN BLANKETS. SHE DENIES ANY OTHER NEEDS AT THIS TIME
[2020-03-24] MEDS: acetaminophen 500 mg Tablet 1000 MG PO (16:16)
[2020-03-24 16:23] LABS: Basophils # 0.1 10^3/uL (0.0-0.1); Basophils % 2.1 %; Eosinophils # 0.2 10^3/uL (0.0-0.8); Eosinophils % 2.2 %; Hematocrit 36.3 % (37.0-47.0); Hemoglobin 11.6 g/dL (11.5-15.3); Lymphocytes # 2.4 10^3/uL (0.8-4.8); Lymphocytes % 36.1 %; Mean Corpuscular Hemoglobin 32.5 pg (28.0-34.0); Mean Corpuscular Volume 101.7 fL (81-99); Monocytes # 0.5 10^3/uL (0.2-0.9); Monocytes % 6.7 %; Neutrophils # 3.55 10^3/uL (1.8-7.7); Neutrophils % 52.6 %; Nucleated Red Blood Cells % 0 %; Platelet Count 145 10^3/cmm (130-400); Red Blood Count 3.57 10^6/uL (4.1-5.3); Red Cell Distribution Width 14.9 % (12.1-15.1); White Blood Count 6.7 10^3/uL (4.0-10.0)
[2020-03-24 16:45] LABS: Alanine Aminotransferase 17 U/L (0-33); Albumin Level 4.3 g/dL (3.5-5.2); Alkaline Phosphatase 70 IU/L (35-105); Anion Gap 16.1 (5-19); Aspartate Amino Transferase 24 U/L (0-32); Blood Urea Nitrogen 22 mg/dL (8-23); Calcium 10.1 mg/dL (8.5-10.5); Carbon Dioxide 23 mmol/L (22-29); Chloride 109 mmol/L (98-107); Globulin 3.2 g/dL (1.3-4.6); Glucose 68 mg/dL (65-115); Osmolality Calculated 300 mOsm/kg (285-295); Potassium 4.1 mmol/L (3.5-5.1); Sodium 144 mmol/L (136-145); Total Bilirubin 0.4 mg/dL (0.15-1.2); Total Protein 7.5 g/dL (6.6-8.7)
[2020-03-24 18:16] VITALS: BP 155/85; PULSE 75; RESP 18
[2020-03-24 18:33] VITALS: BP 155/85; PULSE 75; RESP 17; O2SAT 98
== END 2020-03-24 18:36 | disposition home or self-care (01) ==
PROVIDERS: Nurse Practitioner Family; Emergency Provider Physician Assistant; Family Provider Family Medicine; PCP Family Medicine
DX: M54.5 Low back pain (principal); Z79.82 Long term (current) use of aspirin; Z79.84 Long term (current) use of oral hypoglycemic drugs; E13.9 Other specified diabetes mellitus without complications; I10 Essential (primary) hypertension; E78.2 Mixed hyperlipidemia
CPT/HCPCS: 12345; 74176; 80053; 81003; 85025; 99283

== ENCOUNTER → 2020-05-05 14:12 | Outpatient (BNVA) | payer MEDICARE, MEDICAID, SELFPAY | PROVIDERS: Family Provider Family Medicine; PCP Family Medicine; Visit Provider Family Medicine | DX: D64.9 Anemia, unspecified (principal); E13.9 Other specified diabetes mellitus without complications | CPT/HCPCS: 36415; 80053; 82306; 83036; 84439; 84443; 85025 ==

== ENCOUNTER 2020-05-25 22:36 | Emergency (ER) | payer MEDICARE, MEDICAID, SELFPAY ==
[2020-05-25 22:37] VITALS: BP 113/99; PULSE 88; RESP 20; TEMP 36.4; O2SAT 96; BMI 40.1
--- NOTE | 2020-05-25 22:56 | CTR_ITS ---
PROCEDURE INFORMATION: Exam: CT Head Without Contrast Exam date and time: 05/25/2020 10:59 PM Age: 74 years old Clinical indication: Other: Facial tingling; Additional info: Pain and tingling of the left face TECHNIQUE: Imaging protocol: Computed tomography of the head without contrast. Radiation optimization: All CT scans at this facility use at least one of these dose optimization techniques: automated exposure control; mA and/or kV adjustment per patient size (includes targeted exams where dose is matched to clinical indication); or iterative reconstruction. COMPARISON: No relevant prior studies available. RADIATION DOSE METRICS: Total DLP (mGy-cm): 783.79 FINDINGS: Brain: Normal. No hemorrhage. Unremarkable white matter. No mass effect. Cerebral ventricles: No ventriculomegaly. Bones/joints: Unremarkable. No acute fracture. Paranasal sinuses: Visualized sinuses are unremarkable. No fluid levels. Mastoid air cells: Visualized mastoid air cells are well aerated. Soft tissues: Unremarkable. CT/CT head wo con* [id number] IMPRESSION: Negative for intracranial hemorrhage or mass effect. Radiation Dose CTDIVOL = (mGy): DLP = 783.79 (mGy-cm)
--- NOTE | 2020-05-25 22:57 | XRR_ITS ---
PROCEDURE INFORMATION: Exam: XR Chest, 1 View Exam date and time: 05/25/2020 10:59 PM Age: 74 years old Clinical indication: Chest pain; Additional info: Cp TECHNIQUE: Imaging protocol: XR of the chest Views: 1 view. COMPARISON: CR Chest 1 [place] [id number] 03/14/2019 5:05 PM FINDINGS: Lungs: Right lower lobe atelectasis versus minimal infiltrate. Pleural space: Unremarkable. No pleural effusion. No pneumothorax. Heart/Mediastinum: Unremarkable. No cardiomegaly. Bones/joints: Unremarkable. XR/XR chest 1V portable [id number] IMPRESSION: Right lower lobe atelectasis versus minimal infiltrate.
--- NOTE | 2020-05-25 22:59 | ED_ITS ---
HPI - Neuro Symptoms/Deficit General: Chief Complaint: Neuro Symptoms/Deficit Stated Complaint: TINGLING LEFT SIDE OF FACE Time Seen by Provider: 05/25/20 22:56 Source: patient and EMS Mode of arrival: EMS Limitations: no limitations History of Present Illness: HPI Narrative: Pleasant 74-year-old female patient presents to the emergency department with several hour history of tingling and pain to the left side of the face. She reports sudden onset, woke from sleep, shingles vaccine 12 years ago. Denies weakness of the face, unilateral weakness of the body. She reports infectious diarrhea, treated by her primary care physician Dr. Chen with Rifaximin, states insurance will not pay for the medication she continues to experience 5-8 episodes of diarrhea daily. Reports 2 to 3-week history of infectious diarrhea. Diarrhea started after antibiotics for urinary tract infection. Reports taking quite a bit of Imodium. She reports onset of chest pain during EMS transport but quickly resolved. She reports only lasted seconds. Reports pain was localized to the center of her chest. Reports normal intake of meals. Denies fever or chills. Reports continued abdominal pain due to infectious diarrhea. Onset (ago): hour(s) (2-3) Location: left face History of same: No Severity: mild Quality: tingling and other (pain) Relieving factors: none Exacerbating factors: none Context: sudden onset Associated symptoms: Reports chest pain and other (diarrhea); Deny diaphoresis, headache(s), nausea or vomiting Treatments Prior to Arrival: none Review of Systems General: Reports: 10 or more systems reviewed and unremarkable except in HPI and below Const: Denies: fever(s), chills or diaphoresis Eyes: Denies: blurry vision or eye redness ENMT: Denies: throat pain, dental pain or disequilibrium Card: Reports: chest pain and dyspnea on exertion (chronic); Denies: palpitations, swelling of feet/ankles or orthopnea Resp: Denies: dyspnea, productive cough, non-productive cough, wheezing or chest congestion GI: Reports: abdominal pain, diarrhea and GI cramping (with diarrhea); Denies: nausea, vomiting or constipation : Denies: difficulty voiding or dysuria Musc: Reports: muscle cramps and muscle weakness; Denies: neck pain, back pain, joint pain, joint swelling or joint stiffness Skin/Breast: Denies: rash or pruritus Neuro: Denies: headache(s), weakness in extremities or behavioral changes Psych: Reports: anxiety; Denies: depression, change in appetite or irritability Willie/Lymph: Denies: easy bruising PFS ED PFSH: Medical History (Updated 05/26/20 @ 01:01 by KAY Fierro) Atrial fibrillation 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 Chronic pain Diabetes 1.5, 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 Hypertension Hypothyroidism (acquired) Mixed hyperlipidemia Obesity (BMI 35.0-39.9 without comorbidity) Social History Smoking and tobacco status: never smoked Alcohol intake: former Household members: none Marital status: Number of children: 3 Number of grandchildren: 3 History of recent travel: No NIH stroke score NIHSS: Level Of Consciousness - 1a: 0 Level Of Consciousness Questions - 1b: Both Correct Level Of Consciousness Commands - 1c: Both Correct Best Gaze - 2: Normal Visual Ravi - 3: No Visual Loss Facial Palsy - 4: Normal Motor Arm Right - 5: No Drift Motor Arm Left - 5: No Drift Motor Leg Right - 6: No Drift Motor Leg Left - 6: No Drift Limb Ataxia - 7: Absent Sensory - 8: Normal Best Language - 9: No Aphasia Dysarthia - 10: Normal Extinction And Inattention - 11: 0 Score: Total Score: 0 Physical Exam Const: COMMON NORMALS: no acute distress, average body habitus, patient oriented x3, healthy appearing, alert and well nourished EXAM LIMITATIONS: no altered mental status and no physical limitations GENERAL APPEARANCE: aleksandra ative, comfortable, well kempt, well developed and well hydrated; not in distress, not anxious, not combative, not ill appearing and not frail appearing NUTRITIONAL APPEARANCE: obese ORIENTATION/CONSCIOUSNESS: Yes awake, Yes oriented to person, Yes oriented to place and Yes oriented to time; not confused HENMT: COMMON NORMALS: normocephalic, atraumatic, Normal external nose present, Normal nasal mucous membranes and turbinates present, moist oral mucous membranes and oropharynx normal HEAD & SCALP: normal to inspection, normocephalic and atraumatic; no abrasion, no contusion, no scalp lesion, no scalp tenderness and no Temporal artery tenderness present FACE & SINUS: normal facial exam and face symmetric; no Flattened naso-labial fold present NOSE: Normal external nose present, Normal nares present, Normal nasal mucous membranes and turbinates present and No nasal discharge present MOUTH: Normal oral and palatal mucosa present, lip normal and tongue normal THROAT: posterior oropharynx normal, tonsils normal and uvula midline Eye: COMMON NORMALS: Equal, round and reactive pupils present, EOMs intact bilaterally, conjunctivae normal and normal visual ravi by confrontation GENERAL EYE: appearance normal, both eyes and all related structures VISUAL RAVI: No peripheral vision loss ALIGNMENT: Yes alignment normal PERIORBITAL: periorbital findings normal EYELID: eyelids normal CONJUNCTIVA: Yes conjunctivae normal SCLERA: sclerae normal PUPIL: Yes Equal, round and reactive pupils present EOM: No EOM abnormal Neck/C-Spine: COMMON NORMALS: full ROM and no lymphadenopathy GENERAL: Yes normal visual inspection and Yes trachea midline CERVICAL SPINE: Yes cervical ROM normal Lymph: LYMPHATIC: no lymphadenopathy noted Chest: COMMONS NORMALS: normal inspection of the chest Resp: COMMON NORMALS: normal respiratory effort, No retractions, No use of accessory muscles and clear to auscultation bilaterally EFFORT & INSPECTION: Yes able to speak in complete sentences, Yes symmetric chest movement, No tachypneic, No respiratory distress, No decreased respiratory effort and No uses accessory muscles AUSCULTATION: clear to auscultation bilaterally and diminished lung sounds bilateral in the lower lung ravi Cardio: COMMON NORMALS: regular rate, regular rhythm, S1 normal heart sound present, S2 normal heart sound present and Peripheral pulses 2+ throughout PALPATION: normal PMI RATE: regular rate RHYTHM: regular rhythm HEART SOUNDS: S1 normal heart sound present and S2 normal heart sound present PERIPHERAL PULSES: Peripheral pulses 2+ throughout GI: COMMON NORMALS: Normal to inspection, nondistended, normoactive bowel sounds present, Soft to palpation and non-tender INSPECTION: Yes normal to inspection, No abdominal wall ecchymosis, No incision and No visible pulsation AUSCULTATION: Yes normoactive bowel sounds PALPATION: Yes Soft to palpation : COMMON NORMALS: Yes no CVA tenderness BLADDER/KIDNEY EXAM: Yes no CVA tenderness Back/Pelvis: COMMON NORMALS: no CVA tenderness and thoracic and lumbar spine normal to inspection Extremity: COMMON NORMALS: normal to inspection and capillary refill normal Neuro: COMMON NORMALS: patient oriented x3 and no focal motor deficits SENSORIUM/ORIENTATION: Yes alert, Yes oriented to person, Yes oriented to place and Yes oriented to time Psych: COMMON NORMALS: mental status grossly normal, Normal thought process present and cooperative APPEARANCE: Yes well kempt ACTIVITY/MOTOR BEHAVIOR: Yes appropriate eye contact THOUGHT PROCESS: Normal thought process present Skin: COMMON NORMALS: no rashes or lesions noted, no wounds, turgor normal and no petechiae GENERAL SKIN EXAM: no rashes or lesions noted, elasticity normal and turgor normal LESIONS: no lesions RASHES: no rashes TRAUMA: no lacerations or abrasions Course ED course: 74-year-old female patient presents to the emergency department with facial tingling and pain. She reports sudden onset, facial tingling and pain started in the frontal left scalp and radiated over the forehead left eye and left cheek and chin. During her stay in the ED, she began with facial itching with tingling and pain. Rash was not appreciated upon exam to the scalp or face. She did not experience neurological deficits. EKG did appreciate atrial fibrillation which she says is chronic, serology findings without leukocytosis, abnormal chemistry findings or elevated troponin. Highly suspicious for shingles outbreak, initiated on Valtrex. She was also provided Flagyl for infectious diarrhea she has experienced for 2 to 3 weeks. Insurance company denied prescription for Rifazimin. States has appointment with Dr. Valentine on Monday at 11:20 AM. Case discussed with Dr. Heck, no further orders provided. Benadryl did alleviate itching and improvement of pain with hydrocodone. Agrees to return to the emergency department if she develops unilateral weakness, facial weakness or other concerning symptoms. We will continue to monitor findings on chest x-ray as patient has infectious diarrhea due to antibiotic therapy for UTI, currently exhibiting no symptoms of pneumonia, fever and chills not appreciated. Advised to continue with follow-up with Dr. Valentine for reassessment. Verbalized understanding. Vital Signs: Vital signs: Vital Signs Temperature 97.5 F L 05/25/20 22:37 Pulse Rate 71 05/26/20 01:38 Respiratory Rate 18 05/26/20 01:38 Blood Pressure 163/78 05/26/20 01:38 Pulse Oximetry 94 05/26/20 01:38 MDM - Neuro Symptoms/Deficit Lab Data: Labs: Lab Results 1205/25/20 05/25/20 Range/Units 23:14 23:14 23:14 WBC 6.8 (4.0-10.0) 10^3/ uL RBC 3.30 L (4.1-5.3) 10^6/u L Hgb 10.6 L (11.5-15.3) g/dL Hct 33.0 L (37.0-47.0) % MCV 100.0 H (81-99) fL MCH 32.1 (28.0-34.0) pg MCHC 32.1 (30.0-36.0) g/dL RDW 15.0 (12.1-15.1) % Plt Count 149 (130-400) 10^3/c mm MPV 11.0 H (7.4-10.4) fL Neut % (Auto) 54.4 % Lymph % (Auto) 33.0 % [place] % (Auto) 9.1 % Eos % (Auto) 2.2 % Baso % (Auto) 1.0 % Neut # (Auto) 3.71 (1.8-7.7) 10^3/u L Lymph # (Auto) 2.3 (0.8-4.8) 10^3/u L [place] # (Auto) 0.6 (0.2-0.9) 10^3/u L Eos # (Auto) 0.2 (0.0-0.8) 10^3/u L Baso # (Auto) 0.1 (0.0-0.1) 10^3/u L Nucleated RBC % (a uto) 0 % Nucleated RBCs # 0.0 /100WBC Sodium 139 (136-145) mmol/L Potassium 3.7 (3.5-5.1) mmol/L Chloride 106 (98-107) mmol/L Carbon Dioxide 25 (22-29) mmol/L Anion Gap 11.7 (5-19) BUN 16 (8-23) mg/dL Creatinine 1.0 H (0.5-0.9) mg/dL GFR Calculation Not Reportable Glucose 99 (65-115) mg/dL Calculated Osmolal ity 289 (285-295) mOsm/k g Lactate (0.5-2.2) mmol/L Calcium 9.4 (8.5-10.5) mg/dL Total Bilirubin 0.5 (0.15-1.2) mg/dL AST 19 (0-32) U/L ALT 17 (0-33) U/L Alkaline Phosphata se 74 (35-105) IU/L Troponin T Baselin e 10 (0-10) ng/L Total Protein 7.2 (6.6-8.7) g/dL Albumin 3.9 (3.5-5.2) g/dL Globulin 3.3 (1.3-4.6) g/dL Lipase 23 (13-60) U/L // Range/Units 23:14 WBC (4.0-10.0) 10^3/ uL RBC (4.1-5.3) 10^6/u L Hgb (11.5-15.3) g/dL Hct (37.0-47.0) % MCV (81-99) fL MCH (28.0-34.0) pg MCHC (30.0-36.0) g/dL RDW (12.1-15.1) % Plt Count (130-400) 10^3/c mm MPV (7.4-10.4) fL Neut % (Auto) % Lymph % (Auto) % [place] % (Auto) % Eos % (Auto) % Baso % (Auto) % Neut # (Auto) (1.8-7.7) 10^3/u L Lymph # (Auto) (0.8-4.8) 10^3/u L [place] # (Auto) (0.2-0.9) 10^3/u L Eos # (Auto) (0.0-0.8) 10^3/u L Baso # (Auto) (0.0-0.1) 10^3/u L Nucleated RBC % (a uto) % Nucleated RBCs # /100WBC Sodium (136-145) mmol/L Potassium (3.5-5.1) mmol/L Chloride (98-107) mmol/L Carbon Dioxide (22-29) mmol/L Anion Gap (5-19) BUN (8-23) mg/dL Creatinine (0.5-0.9) mg/dL GFR Calculation Glucose (65-115) mg/dL Calculated Osmolal ity (285-295) mOsm/k g Lactate 0.6 (0.5-2.2) mmol/L Calcium (8.5-10.5) mg/dL Total Bilirubin (0.15-1.2) mg/dL AST (0-32) U/L ALT (0-33) U/L Alkaline Phosphata se (35-105) IU/L Troponin T Baselin e (0-10) ng/L Total Protein (6.6-8.7) g/dL Albumin (3.5-5.2) g/dL Globulin (1.3-4.6) g/dL Lipase (13-60) U/L Imaging Data^: CXR: Radiologist's impression: [facility] [address] [place], [place] [address] XRay Report Signed Patient: Sara Beck #: [id number] : 8Acct#:[id number] Age/Sex: 74 / FADM Date: 05/25/20 [facility] Attending Dr: Ordering Provider/Ordering MD: Vicki Alba Date of Service: 05/25/20 Procedure(s): XR chest 1V portable [id number] Accession Number(s): [id number] Report Number: [id number] PROCEDURE INFORMATION: Exam: XR Chest, 1 View Exam date and time: 05/25/2020 10:59 PM Age: 74 years old Clinical indication: Chest pain; Additional info: Cp TECHNIQUE: Imaging protocol: XR of the chest Views: 1 view. COMPARISON: CR Chest 1 [place] [id number] 03/14/2019 5:05 PM FINDINGS: Lungs: Right lower lobe atelectasis versus minimal infiltrate. Pleural space: Unremarkable. No pleural effusion. No pneumothorax. Heart/Mediastinum: Unremarkable. No cardiomegaly. Bones/joints: Unremarkable. XR/XR chest 1V portable [id number] IMPRESSION: Right lower lobe atelectasis versus minimal infiltrate. Dictated By:Suhail Phipps MD Signed By:Suhail Phipps MDSigned Date/Time:05/25/202343 DD/ 42 CT Head: Radiologist's impression: [facility] [address] [place], [place] [id number] CT Scan Report Signed Patient: Sara Beck #: [id number] : 8Acct#:[id number] Age/Sex: 74 / FADM Date: 05/25/20 Loc: ERRoom/Bed: Attending Dr: Ordering Provider/Ordering MD: Vicki Alba Date of Service: 05/25/20 Procedure(s): CT head wo con* [id number] Accession Number(s): [id number] Report Number: [id number] PROCEDURE INFORMATION: Exam: CT Head Without Contrast Exam date and time: 05/25/2020 10:59 PM Age: 74 years old Clinical indication: Other: Facial tingling; Additional info: Pain and tingling of the left face TECHNIQUE: Imaging protocol: Computed tomography of the head without contrast. Radiation optimization: All CT scans at this facility use at least one of these dose optimization techniques: automated exposure control; mA and/or kV adjustment per patient size (includes targeted exams where dose is matched to clinical indication); or iterative reconstruction. COMPARISON: No relevant prior studies available. RADIATION DOSE METRICS: Total DLP (mGy-cm): 783.79 FINDINGS: Brain: Normal. No hemorrhage. Unremarkable white matter. No mass effect. Cerebral ventricles: No ventriculomegaly. Bones/joints: Unremarkable. No acute fracture. Paranasal sinuses: Visualized sinuses are unremarkable. No fluid levels. Mastoid air cells: Visualized mastoid air cells are well aerated. Soft tissues: Unremarkable. CT/CT head wo con* [id number] IMPRESSION: Negative for intracranial hemorrhage or mass effect. Radiation Dose CTDIVOL = (mGy): DLP = 783.79 (mGy-cm) Dictated By:Suhail Phipps MD Signed By:Suhail Phipps MDSigned Date/Time:05/25/202327 DD/ 25 Discharge Plan Discharge Patient Disposition: Home Clinical Impression: Facial tingling, Infectious diarrhea Condition: Stable Prescriptions: New Flagyl 500 mg tablet 500 mg PO Q8H 7 Days Qty: 21 RF: 0 Valtrex 1 gram tablet 1,000 mg PO Q8H 7 Days Qty: 21 RF: 0 No Action diclofenac sodium [Voltaren] 1 % gel 4 gm TOPICAL QID RF: 0 ascorbate calcium (vitamin C) 500 mg tablet 500 mg PO DAILY RF: 0 omega-3 fatty acids [Fish Oil Concentrate] 1,000 mg capsule 1,000 mg PO DAILY RF: 0 glucosamine-chondroitin 167-133 mg capsule 1 cap PO DAILY RF: 0 sumatriptan succinate [Imitrex] 100 mg tablet See Rx Instructions PO .COMPLEX RF: 0 (DME) insulin needles (disposable) 30 X 3/4 needle See Rx Instructions .ROUTE .MEDSUPPLY Qty: 1 RF: 0 aspirin [Adult Aspirin Regimen] 81 mg tablet,delayed release (DR/EC) 81 mg PO DAILY RF: 0 vitamin B complex PO RF: 0 acyclovir 5 % ointment 1 applic TOPICAL TID PRN (Reason: Cold Sores) Qty: 30 RF: 5 prednisone 5 mg tablets,dose pack See Rx Instructions PO PER PKG DIR Qty: 21 RF: 0 furosemide [Lasix] 40 mg tablet 40 mg PO DAILY PRN (Reason: edema) RF: 0 thiamine HCl (vitamin B1) 50 mg tablet 25 mg PO DAILY RF: 0 ergocalciferol (vitamin D2) 1,250 mcg (50,000 unit) capsule 1,250 mcg PO .COMPLEX Qty: 14 RF: 3 spironolactone 25 mg tablet 25 mg PO DAILY RF: 0 cannabidiol 100 mg/mL solution PO DAILY RF: 0 olopatadine [Pataday] 0.2 % drops 1 drop ophthalmic (eye) DAILY PRN (Reason: itching) Qty: 2.5 RF: 11 Victoza 2-Thee 0.6 mg/0.1 mL (18 mg/3 mL) pen injector 1.8 mg SUBCUT QDAY Qty: 6 RF: 5 glipizide 10 mg tablet 20 mg PO BID Qty: 60 RF: 11 lisinopril 40 mg tablet 40 mg PO BEDTIME Qty: 30 RF: 11 ibuprofen 800 mg tablet 800 mg PO TID PRN (Reason: Pain) Qty: 90 RF: 11 Lidocaine Viscous 2 % solution 1 applic MUCOUS MEM Q8H PRN (Reason: pain) Qty: 100 RF: 0 metronidazole 0.75 % cream 1 applic TOPICAL BID Qty: 135 RF: 11 amlodipine 5 mg tablet 5 mg PO DAILY Qty: 30 RF: 11 lidocaine HCl 2 % jelly 1 applic TOPICAL QID PRN (Reason: Pain) Qty: 30 RF: 5 potassium chloride 15 mEq tablet,ER particles/crystals 15 meq PO DAILY PRN (Reason: TAKE WITH LASIX) Qty: 30 RF: 11 pioglitazone [Actos] 30 mg tablet 30 mg PO DAILY Qty: 30 RF: 11 lidocaine [Lidoderm] 5 % adhesive patch,medicated 3 patch TOPICAL .q12 hours Qty: 30 RF: 11 benzonatate 200 mg capsule 200 mg PO TID PRN (Reason: cough) Qty: 14 RF: 0 Dexilant 60 mg capsule,biphase delayed releas 60 mg PO DAILY Qty: 30 RF: 5 levothyroxine [Synthroid] 150 mcg tablet 150 mcg PO DAILY Qty: 30 RF: 11 carvedilol 25 mg tablet 25 mg PO BID Qty: 60 RF: 11 simvastatin 10 mg tablet 10 mg PO DAILY Qty: 30 RF: 11 Niva-Plus 27 mg iron- 1 mg tablet 1 tab PO DAILY Qty: 90 RF: 3 clonazepam 0.5 mg tablet 0.5 mg PO .COMPLEX PRN (Reason: anxiety) Qty: 60 RF: 0 loperamide [Imodium A-D] 2 mg capsule 2 mg PO .COMPLEX PRN (Reason: loose stool) Qty: 90 RF: 0 ferrous sulfate 325 mg (65 mg iron) tablet 325 mg PO BID Qty: 60 RF: 11 nitroglycerin 0.4 mg tablet, sublingual See Rx Instructions .ROUTE .COMPLEX Qty: 100 RF: 5 fluticasone propionate 50 mcg/actuation spray,suspension 1 spray INTRANASAL BID Qty: 15.8 RF: 5 Xifaxan 550 mg tablet 550 mg PO BID Qty: 30 RF: 0 Discharge Orders: Discharge ED (Routine); Ordered 05/26/20 Ordered By: Vicki Alba Referrals: Tenzin Valentine DO [Primary Care Provider] - Discharge Diet: Usual diet Discharge Activity: Resume usual activity Patient Instructions: Atrial Fibrillation (ED), Paresthesia (ED), Shingles Activity Restrictions/Additional Instructions: take Valtrex until all gone, even if better Take Flagyl until all gone, even if better follow up with DR Valentine Monday as scheduled Continue follow-up with resident caregiver Return to the emergency department if you develop facial weakness, unilateral weakness of the body, or worsening paresthesias symptoms of the face Continue to push fluids due to diarrhea Continue Benadryl as needed for facial itching Coding Level of Care Code ED Toilet Attendant for Chg Fwd Exam Comprehensive
[2020-05-25 23:22] LABS: Basophils # 0.1 10^3/uL (0.0-0.1); Eosinophils # 0.2 10^3/uL (0.0-0.8); Eosinophils % 2.2 %; Hemoglobin 10.6 g/dL (11.5-15.3); Lymphocytes # 2.3 10^3/uL (0.8-4.8); Mean Corpuscular HGB Conc 32.1 g/dL (30.0-36.0); Mean Corpuscular Hemoglobin 32.1 pg (28.0-34.0); Monocytes # 0.6 10^3/uL (0.2-0.9); Monocytes % 9.1 %; Neutrophils # 3.71 10^3/uL (1.8-7.7); Neutrophils % 54.4 %; Nucleated Red Blood Cells % 0 %; Platelet Count 149 10^3/cmm (130-400); White Blood Count 6.8 10^3/uL (4.0-10.0)
[2020-05-25 23:35] LABS: Lactate (Lactic Acid level) 0.6 mmol/L (0.5-2.2)
[2020-05-25 23:37] LABS: Alanine Aminotransferase 17 U/L (0-33); Albumin Level 3.9 g/dL (3.5-5.2); Alkaline Phosphatase 74 IU/L (35-105); Anion Gap 11.7 (5-19); Aspartate Amino Transferase 19 U/L (0-32); Blood Urea Nitrogen 16 mg/dL (8-23); Calcium 9.4 mg/dL (8.5-10.5); Carbon Dioxide 25 mmol/L (22-29); Chloride 106 mmol/L (98-107); Globulin 3.3 g/dL (1.3-4.6); Glucose 99 mg/dL (65-115); Lipase 23 U/L (13-60); Osmolality Calculated 289 mOsm/kg (285-295); Potassium 3.7 mmol/L (3.5-5.1); Sodium 139 mmol/L (136-145); Total Bilirubin 0.5 mg/dL (0.15-1.2); Total Protein 7.2 g/dL (6.6-8.7)
[2020-05-25 23:39] LABS: Troponin(5th) Baseline 10 ng/L (0-10)
[2020-05-25 23:43] VITALS: BP 143/65; PULSE 63; RESP 19; O2SAT 97
[2020-05-26] MEDS: HYDROcodone-acetaminophen 5-325 mg Tablet 1 TAB PO (00:57)
[2020-05-26] MEDS: diphenhydrAMINE 50 mg/mL SDV 1mL 25 MG IVP (00:58)
[2020-05-26 01:00] VITALS: BP 152/73; PULSE 83; RESP 17; O2SAT 96
[2020-05-26] MEDS: valACYclovir 1,000 mg Tablet 1000 MG PO (01:31)
[2020-05-26 01:38] VITALS: BP 163/78; PULSE 71; RESP 18; O2SAT 94
== END 2020-05-26 01:38 | disposition home or self-care (01) ==
PROVIDERS: Emergency Provider Nurse Practitioner Family; PCP Family Medicine
DX: R20.2 Paresthesia of skin (principal); A09 Infectious gastroenteritis and colitis, unspecified; Z79.82 Long term (current) use of aspirin; I48.91 Unspecified atrial fibrillation; E13.9 Other specified diabetes mellitus without complications; I10 Essential (primary) hypertension; E78.2 Mixed hyperlipidemia
CPT/HCPCS: 12345; 70450; 71045; 80053; 83605; 83690; 84484; 85025; 96374; 96375; 99282; 99283; J1200

== ENCOUNTER → 2021-01-07 15:14 | Outpatient (BNVA) | payer MEDICARE, MEDICAID, SELFPAY | PROVIDERS: PCP Family Medicine; Visit Provider Family Medicine | DX: D64.9 Anemia, unspecified (principal); I10 Essential (primary) hypertension; E13.9 Other specified diabetes mellitus without complications | CPT/HCPCS: 80053; 83036; 83540; 83550; 85025 ==

== ENCOUNTER → 2021-02-04 12:20 | Outpatient (BNVA) | payer MEDICARE, MEDICAID, SELFPAY | PROVIDERS: PCP Family Medicine; Visit Provider Family Medicine | DX: Z20.822 Contact with and (suspected) exposure to COVID-19 (principal); J02.9 Acute pharyngitis, unspecified | CPT/HCPCS: 87635 ==